=== PATIENT | male | born 1985 | race Two or more races ===

== ENCOUNTER 2021-05-22 19:44 | Emergency (ER) | payer SELFPAY ==
[2021-05-22] MEDS ORDERED: CEPHALEXIN500 M1 PO (22:21)
[2021-05-22] MEDS ORDERED: BACTRIM DS TAB1 EACH PO (22:21)
== END 2021-05-22 22:27 | disposition home or self-care (01) ==
LOC: ER1 19:44
DX: L03.113 Cellulitis of right upper limb (principal)
CPT/HCPCS: 99283

== ENCOUNTER 2021-09-19 12:18 | Emergency (ER) | payer SELFPAY ==
[~2021-09-19 12:18] MED LIST: BACTRIM DS TAB1 EACH PO; CEPHALEXIN500 M1 PO
[2021-09-19] MEDS ORDERED: IBUPROFEN600 MG PO (12:41)
[2021-09-19] MEDS ORDERED: CEPHALEXIN500 MG PO (12:41)
== END 2021-09-19 12:46 | disposition home or self-care (01) ==
LOC: ER1 12:18
DX: R60.0 Localized edema (principal); F17.200 Nicotine dependence, unspecified, uncomplicated
CPT/HCPCS: 99283